=== PATIENT | female | born 1955 | race Caucasian/White ===

== ENCOUNTER 2018-07-13 19:00 | Observation (INO) | payer OTHER ==
[~2018-07-13 19:00] MED LIST: Iopamidol 370 76% 100 ML VIAL ONE
[2018-07-13 19:46] LABS: #Basophils 0.1 thou/uL (0.0-0.2); #Eosinphils 0.3 thou/uL (0.0-0.7); #Lymphocytes 3.1 thou/uL (1.20-3.40); #Monocytes 0.6 thou/uL (0.11-0.59); %Basophils 1.9 % (0.0-1.0); %Eosinophils 4.3 % (0.0-10.0); %Lymphocytes 43.3 % (21.0-51.0); %Monocytes 7.9 % (0.0-10.0); %Neutrophils 42.7 % (42.0-75.0); Hemoglobin 11.6 g/dL (12.0-16.0); Mean Corpuscular HGB CONC 34.1 g/dL (32.0-36.0); Mean Corpuscular Hemoglobin 30.7 pg (27.0-31.0); Mean Platelet Volume 7.7 fL (7.4-10.4); Platelet Count 237 thou/uL (130-400); RBC Distribution Width 11.8 % (11.5-14.5); Red Blood Cell (RBC) Count 3.79 mill/uL (4.20-5.40); White Blood Cell (WBC) Count 7.1 thou/uL (4.8-10.8)
[2018-07-13 19:55] LABS: INR-International Normal Ratio 1.1; PTT 32.3 SEC (22.9-36.1)
--- NOTE | 2018-07-13 19:56 | CT ---
NONCONTRAST CT HEAD: 07/13/18 HISTORY: Stroke. COMPARISON: None available. FINDINGS: There is diminished attenuation seen throughout the periventricular white matter which is nonspecific but likely attributable to moderate to severe chronic small vessel ischemic changes. Low density foc i are seen in each thalamus in the anterior aspect of each basal ganglia related to lacunar infarctio ns of indeterminate age. No acute cortical infarction is seen. There is no evidence of a hemorrhage, mass effect of midline shift. Mild cerebral volume loss is present. The visualized paranasal sinuses and mastoid air cells are clear. The calvarial structures have a nor mal appearance. IMPRESSION: 1. Lacunar infarctions in each thalamus and each basal ganglia of indeterminate age. 2. Moderate to severe chronic small vessel ischemic changes. 3. No acute cortical infarction is seen. Above findings discussed with Dr. Fernández in the Emergency Department on 07/13/18 at 1914 hours. POS: [facility]
[2018-07-13 20:03] LABS: ALT (SGPT) 23 U/L (8-55); AST (SGOT) 25 U/L (5-34); Alkaline Phosphatase 60 U/L (40-150); Anion Gap 14 mmol/L (10-20); BUN (Urea Nitrogen) 30 mg/dL (9.8-20.1); Bilirubin, Total 0.4 mg/dL (0.2-1.2); CK (CPK) 123 U/L (29-168); Calc. Creatinine Clearance 0 mL/min (70-130); Calcium 9.3 mg/dL (7.8-10.44); Carbon Dioxide 19 mmol/L (22-29); Chloride 102 mmol/L (98-107); Estimated GFR-MDRD 24; Globulin 2.9 g/dL (2.4-3.5); Glucose 122 mg/dL (70-105); Magnesium 1.7 mg/dL (1.6-2.6); Potassium 3.9 mmol/L (3.5-5.1); Protein, Total 6.9 g/dL (6.0-8.3); Sodium 131 mmol/L (136-145)
[2018-07-13 20:04] LABS: Acetaminophen Less than 6.0 mcg/mL (10.0-30.0); Alcohol Less than 10 mg/dL (Less than 10); Salicylate Less than 8.0 mg/dL (15.0-30.0)
[2018-07-13 20:08] LABS: Troponin I Less than 0.010 ng/mL (< 0.028)
[2018-07-13 20:09] LABS: Bilirubin Negative (Negative); Blood, Urine Small (Negative); Clarity CLOUDY (Clear); Glucose, Urine (Dipstick) Negative (Negative); Leukocyte Large (Negative); Nitrite Positive (Negative); Protein, Urine (Dipstick) Negative (Neg-Trace); Specific Gravity, Urine 1.007 (1.002-1.036); Urobilinogen 0.2 mg/dL (0.2-1.0)
[2018-07-13 20:10] LABS: RBC/HPF 0-3 HPF (0-3)
[2018-07-13 20:13] LABS: Pathc Cast-AUWi Flag 3.19 (0-2.49)
[2018-07-13 20:17] LABS: Medtox Reader # READER 4
[2018-07-13 20:18] LABS: Amphetamine Not Detected (NotDetected); Barbiturates Screen Not Detected (NotDetected); Benzodiazepine Screen Detected (NotDetected); Cocaine Metabolite Screen Not Detected (NotDetected); Medtox Control Line Valid? VALID (VALID); Methadone Not Detected (NotDetected); Methamphetamine Not Detected (NotDetected); Opiate Screen Not Detected (NotDetected); Oxycodone Screen Not Detected (NotDetected); Phencyclidine (PCP) Not Detected (NotDetected); THC/Cannabinoid Screen Not Detected (NotDetected); Tricyclic Screen Detected (NotDetected)
[2018-07-13 20:19] LABS: Hyaline Casts/LPF 0-3 HYALINE CAST LPF (0-3 Hyaline); Other Casts/LPF None Seen LPF (0-3 Hyaline)
[2018-07-13 20:20] LABS: Bacteria/HPF 3+ HPF (None Seen)
[2018-07-13] MEDS ORDERED: cefTRIAXone\\ROCEPHIN 1 GM VIAL ONE (21:25)
[2018-07-13] MEDS ORDERED: Sodium Chloride 0.9% 100 ML ONE (21:25)
[2018-07-13] MEDS ORDERED: Ondansetron PF 4 MG/2 ML Vial IVP PRN (21:31)
[2018-07-13] MEDS ORDERED: Acetaminophen 325 MG TAB PO PRN (21:31)
--- NOTE | 2018-07-13 21:46 | CT ---
CT ANGIOGRAM HEAD WITH IV CONTRAST AND 3D RECONSTRUCTIONS CT ANGIOGRAM NECK WITH IV CONTRAST AND 3D RECONSTRUCTIONS 07/13/18 HISTORY: Stroke. COMPARISON: None available. FINDINGS: There is mild atherosclerotic calcifications and plaque in the aortic arch. There is a normal arrange ment of the great vessels at the aortic arch. Left subclavian artery is tortuous and portions of the left subclavian artery are not well visualized due to dense contrast in the left subclavian vein, but the left subclavian artery is otherwise patent. The innominate and right subclavian artery are paten t. The bilateral common carotid arteries are patent. There is mild atherosclerotic calcifications presen t within the origins and involving the proximal internal carotid arteries bilaterally, but there is l ess than 50% maximal stenosis involving each internal carotid artery based on NASCET criteria. The left vertebral artery is generally small in caliber and appears to arise from the aortic arch. Th e right vertebral artery is dominant and is patent. There is a dense calcification present in the dis dhaval left vertebral artery at the skull base. The basilar artery as well as bilateral posterior cerebr al arteries are patent. There is a type origin of the left posterior cerebral artery which is a normal variant. The posterior communicating artery on the right is patent. The bilateral middle cerebral and anterior cerebral arteries are patent. No focal stenosis or branch occlusion is seen involving the [place] or vertebrobasilar system. No aneurysm is seen withi n the limitations of the technique of this exam. Lung apices demonstrate what appears to be small layering pleural effusion versus pleural thickening on the right with evidence of atelectasis in the visualized upper lung zones bilaterally. Degenerative changes are seen in the cervical spine. IMPRESSION: 1. Less than 50% maximal stenosis involving the bilateral internal carotid arteries with mild na rrowing involving the proximal aspect of each internal carotid artery due to vascular calcifications. 2. The left vertebral artery arises from the abdominal aorta and is very small in caliber. The r ight vertebral artery is dominant and is patent. 3. No focal stenosis or branch occlusion involving the [place] or vertebrobasilar syste m. 4. Above findings discussed with Dr. Fernández in the Emergency Department on 07/13/18 at 1956 hour s. POS: [facility]
--- NOTE | 2018-07-13 21:52 | RAD ---
PORTABLE AP CHEST X-RAY 07/13/18 HISTORY: Altered mental status. COMPARISON: None available. FINDINGS: The cardiac silhouette and bronchovascular markings are accentuated by portable technique and shallow depth of inspiration. Bibasilar atelectasis is present. Vascular calcifications are seen in the thor acic aorta. Osseous structures appear intact. IMPRESSION: No definite acute cardiopulmonary process present, but there is accentuation of the bronchovascular m arkings and the cardiac silhouette. Followup chest x-ray may be helpful for further evaluation. POS: [facility]
[2018-07-14] MEDS: Sodium Chloride 0.9% 1,000 ML IV SCH ×2 (00:12→13:08)
[2018-07-14 01:38] VITALS: BMI 32.2
[2018-07-14 06:27] LABS: #Basophils 0.1 thou/uL (0.0-0.2); #Eosinphils 0.2 thou/uL (0.0-0.7); #Lymphocytes 2.2 thou/uL (1.20-3.40); #Monocytes 0.7 thou/uL (0.11-0.59); #Neutrophils 3.7 thou/uL (1.40-6.50); %Basophils 1.1 % (0.0-1.0); %Eosinophils 3.6 % (0.0-10.0); %Lymphocytes 31.6 % (21.0-51.0); %Monocytes 10.6 % (0.0-10.0); Hemoglobin 11.8 g/dL (12.0-16.0); Mean Corpuscular HGB CONC 31.7 g/dL (32.0-36.0); Mean Corpuscular Hemoglobin 28.5 pg (27.0-31.0); Mean Corpuscular Volume 90.1 fL (78.0-98.0); Mean Platelet Volume 7.9 fL (7.4-10.4); Platelet Count 221 thou/uL (130-400); RBC Distribution Width 11.9 % (11.5-14.5); Red Blood Cell (RBC) Count 4.13 mill/uL (4.20-5.40); White Blood Cell (WBC) Count 6.9 thou/uL (4.8-10.8)
[2018-07-14 06:45] LABS: Anion Gap 13 mmol/L (10-20); BUN (Urea Nitrogen) 26 mg/dL (9.8-20.1); Calc. Creatinine Clearance 54 mL/min (70-130); Calcium 9.2 mg/dL (7.8-10.44); Carbon Dioxide 19 mmol/L (22-29); Chloride 110 mmol/L (98-107); Estimated GFR-MDRD 32; Glucose 101 mg/dL (70-105); Potassium 3.6 mmol/L (3.5-5.1); Sodium 138 mmol/L (136-145)
[2018-07-14] MEDS: Enoxaparin Sodium 40 MG/0.4 ML SYRINGE SC SCH (09:56)
[2018-07-14] MEDS: Gabapentin 300 MG CAP PO SCH ×2 (16:16→20:27)
[2018-07-14] MEDS ORDERED: Dextrose 5% in Water 1,000 ML IV PRN (17:20)
[2018-07-14] MEDS ORDERED: Dextrose 50% Abboject 50 ML SYRINGE SLOW IVP PRN (17:20)
[2018-07-14] MEDS: HumaLOG 300 UNITS/3 ML VIAL SC PRN (17:51)
[2018-07-14] MEDS: Pregabalin 75 MG CAP PO SCH (20:27)
[2018-07-14] MEDS: cloNIDine 0.3 MG TAB PO SCH (20:27)
[2018-07-14] MEDS ORDERED: Atorvastatin Calcium 10 MG TAB PO SCH (21:00)
[2018-07-15 05:59] LABS: #Eosinphils 0.2 thou/uL (0.0-0.7); #Monocytes 0.6 thou/uL (0.11-0.59); #Neutrophils 2.5 thou/uL (1.40-6.50); %Basophils 0.9 % (0.0-1.0); %Lymphocytes 37.4 % (21.0-51.0); %Monocytes 10.5 % (0.0-10.0); %Neutrophils 47.2 % (42.0-75.0); Hemoglobin 11.5 g/dL (12.0-16.0); Mean Corpuscular Hemoglobin 29.8 pg (27.0-31.0); Mean Corpuscular Volume 90.2 fL (78.0-98.0); Mean Platelet Volume 8.2 fL (7.4-10.4); Platelet Count 245 thou/uL (130-400); RBC Distribution Width 12.1 % (11.5-14.5); Red Blood Cell (RBC) Count 3.85 mill/uL (4.20-5.40); White Blood Cell (WBC) Count 5.4 thou/uL (4.8-10.8)
[2018-07-15] MEDS ORDERED: cefTRIAXone\\ROCEPHIN 1 GM in Sodium Chloride 0.9% 100 ML IVPB SCH (06:00)
[2018-07-15 06:18] LABS: ALT (SGPT) 20 U/L (8-55); AST (SGOT) 18 U/L (5-34); Albumin 3.6 g/dL (3.5-5.0); Alkaline Phosphatase 55 U/L (40-150); Anion Gap 11 mmol/L (10-20); BUN (Urea Nitrogen) 19 mg/dL (9.8-20.1); Bilirubin, Total 0.4 mg/dL (0.2-1.2); Calc. Creatinine Clearance 64 mL/min (70-130); Calcium 9.6 mg/dL (7.8-10.44); Carbon Dioxide 20 mmol/L (22-29); Chloride 113 mmol/L (98-107); Estimated GFR-MDRD 40; Glucose 169 mg/dL (70-105); Potassium 3.7 mmol/L (3.5-5.1); Protein, Total 6.6 g/dL (6.0-8.3); Sodium 140 mmol/L (136-145)
[2018-07-15] MEDS: Sodium Chloride 0.9% 1,000 ML IV SCH (06:28)
[2018-07-15] MEDS ORDERED: Losartan 25 MG TAB PO SCH (09:00)
[2018-07-15] MEDS ORDERED: Furosemide 40 MG TAB PO SCH (09:00)
[2018-07-15] MEDS ORDERED: Potassium Chloride 20 MEQ TAB PO SCH (09:00)
[2018-07-15] MEDS ORDERED: Allopurinol 100 MG TAB PO SCH (09:00)
[2018-07-15] MEDS ORDERED: glyBURIDE 5 MG TAB PO SCH (09:00)
[2018-07-15] MEDS ORDERED: Carvedilol 6.25 MG TAB PO SCH (09:00)
[2018-07-15] MEDS ORDERED: Aspirin 325 mg Enteric Coated Tablet PO SCH (09:00)
[2018-07-15] MEDS: cloNIDine 0.3 MG TAB PO SCH (09:18)
[2018-07-15] MEDS: Pregabalin 75 MG CAP PO SCH (09:19)
[2018-07-15] MEDS: Gabapentin 300 MG CAP PO SCH (09:19)
[2018-07-15] MEDS: Enoxaparin Sodium 40 MG/0.4 ML SYRINGE SC SCH (09:25)
--- NOTE | 2018-07-15 10:08 | RAD ---
PORTABLE CHEST: DATE: 07/15/2018. PROVIDED CLINICAL HISTORY: Altered mental status. FINDINGS: Cardiac and mediastinal silhouette is unchanged in appearance. Vascular calcification is again seen. No definite focal consolidation, pleural fluid, or pneumothorax apparent. IMPRESSION: No evidence for an acute cardiopulmonary process. POS: [facility]
[2018-07-15 11:21] VITALS: BP 139/82; TEMP 97.4
--- NOTE | 2018-07-15 12:03 | PDOC.PN ---
- Subjective Encounter Start Date: 07/15/18 Encounter Start Time: 10:00 Ms. Mo was seen both yesterday and again this morning in follow-up of lethargy. Please note that Mr. Mo is her current name. She also has old records under the name Janiya Whitlock as well. She was last in the hospital in June under the name of Janiya Mo. It is reported that she was extremely drowsy this morning. When I came to see her she was more awake and alert. She was answering questions appropriately. She is oriented to person, place and time, She knew the President, and the reason she was brought to the hospital. - Objective Resuscitation Status - Order Detail: 07/13/18 21:31 Resuscitation Status Routine Resuscitation Status: FULL: Full Resuscitation MAR Reviewed: Yes Vital Signs & Weight: Vital Signs (12 hours) Temp Pulse Pulse Pulse Resp BP BP 07/15/18 11:16 97.4 F L 69 16 139/82 07/15/18 09:40 68 71 122/74 07/15/18 09:25 120/85 07/15/18 07:25 99.3 F 76 16 103/70 07/15/18 04:00 98.2 F 71 21 H BP BP Pulse Ox 07/15/18 11:16 97 07/15/18 09:40 114/70 07/15/18 09:25 07/15/18 07:25 92 L 07/15/18 04:00 126/81 93 L Weight Weight 197 lb 8 oz I&O: 07/14/18 07/15/18 07/16/18 06:59 06:59 06:59 Intake Total 525 1770 1165 Output Total 1100 Balance 525 1770 65 Result Diagrams: 07/15/18 04:22 07/15/18 04:22 Additional Labs: Accuchecks 07/15/18 07/15/18 07/14/18 10:46 05:11 20:08 POC Glucose 289 H 172 H 125 H 07/14/18 16:45 POC Glucose 207 H Phys Exam - Physical Examination HEENT: PERRLA Respiratory: no wheezing, no rales, no rhonchi, wheezing present, clear to auscultation bilateral + occasional wheeze Cardiovascular: RRR, no significant murmur, no rub Gastrointestinal: soft, non-tender, no distention, positive bowel sounds Musculoskeletal: pulses present Neurological: moves all 4 limbs + mild right upper extremity weakness Psychiatric: normal affect, A&O x 3 Dx/Plan (1) UTI (urinary tract infection) Status: Acute (2) Metabolic encephalopathy Code(s): G93.41 - METABOLIC ENCEPHALOPATHY Status: Acute (3) Polypharmacy Code(s): Z79.899 - OTHER PRISON (CURRENT) DRUG THERAPY Status: Acute (4) CVA, old, hemiparesis Code(s): I69.359 - HEMIPLGA FOLLOWING CEREBRAL INFARCTION AFFECTING UNSP SIDE Status: Acute (5) Diabetes mellitus type 2 in obese Code(s): E11.69 - TYPE 2 DIABETES MELLITUS WITH OTHER SPECIFIED COMPLICATION; E66.9 - OBESITY, UNSPECIFIED Status: Acute (6) Hypertension Code(s): I10 - ESSENTIAL (PRIMARY) HYPERTENSION Status: Acute - Plan * Altered mental status and lethargy- I suspect this is due to a metabolic encephalopathy from multiple sources, including a UTI, Polypharmacy, and she may have some underlying sleep apnea. This was discussed with the patient * HTN- blood pressure is controlled * DM- blood glucose is stable * Will get her up with PT today * I have recommended outpatient sleep study * She had an abnormal CT abdomen on her previous admission- ( area about the pancreatic head)- This will need to be follow-up as an outpatient.
[2018-07-15] MEDS: HumaLOG 300 UNITS/3 ML VIAL SC PRN (12:04)
--- NOTE | 2018-07-15 21:25 | HP ---
CHIEF COMPLAINT: Altered mental status. HISTORY OF PRESENT ILLNESS: The patient presented to the emergency room on 07/13/2018 initially for a stroke alert. Family had called EMS for patient, who had increasing weakness. The patient evidently had TIA 2 days prior, admitted to the hospital, discharged yesterday, and slept most of the night. When EMS arrived, the patient was found to have slurred speech, right-sided weakness, and a slight drift. At that time, family could not give EMS any definite last normal baseline time. The patient was initially hypotensive at 97/60, then it increased to 110/80 while en route. Glucose was 189. Most of this information is taken from records. It is important to note that the patient has registered with the last name Celso. She was previously seen in June with last name Chely. The patient also has aliases of Kamlesh and one other name. Nurses note that she had medications with several different names listed. While in the ER, family called and noted that she had had previous CVAs and had some chronic right-sided weakness. The patient was worked up for a stroke while in the emergency room. The patient had brain CT while in the emergency room, which showed lacunar infarctions in each thalamus and each basal ganglia of indeterminate age, [id number] chronic small vessel ischemic changes, no acute infarction is seen. She also had a CTA of the neck and brain, which showed less than 50% max stenosis involving the bilateral internal carotid arteries, mild narrowing of the proximal aspect of each internal carotid artery due to vascular calcifications. Left vertebral artery arises from the abdominal aorta, and it is very small in caliber. No focal stenosis of the branch or branch occlusion involving the [place]. The patient also had a chest x-ray, which was negative for any acute process. The patient had a nitrite positive UTI in the emergency room, started on Rocephin. Lactic acid was 1.1. Creatinine initially was 2.14, and her urine drug screen was positive for tricyclics and benzodiazepine. The patient does not have a prescription known to us for benzodiazepines. The patient based on history and symptoms was admitted to observation. Of note, the patient was admitted and discharged in June of this year, discharge date 06/12/2018. She had at that time acute metabolic encephalopathy, acute renal injury with mild rhabdomyolysis, urinary tract infection, hypertension, and type 2 diabetes. urine was again positive for tricyclics and benzodiazepines. She was instructed at that time to follow up with Dr. Wesley for followup appointment to repeat her labs, and restart medications. The patient is unable to say whether that happened. PAST MEDICAL HISTORY: 1. Hypertension. 2. Diabetes mellitus, type 2. 3. Question of chronic obstructive pulmonary disease. 4. Hyperlipidemia. 5. Question of peripheral neuropathy. 6. History of prior CVA accidents with residual right-sided weakness. 7. Tobacco abuse. PAST SURGICAL HISTORY: Reviewed and negative. CURRENT MEDICATIONS: List is incomplete, will be needed to be confirm with family as the patient was in possession several bottles of medication, which had different names. List from last admission on discharge included the following, 1. Aspirin 325 mg 1 p.o. daily. 2. Coreg 12.5 mg p.o. daily. 3. Clonidine 0.3 mg p.o. b.i.d. 4. Lasix 40 mg p.o. daily. 5. Glyburide 5 mg p.o. daily. 6. Protonix 40 mg p.o. daily. 7. K-Dur 20 meq p.o. daily. 8. Pravastatin 40 mg p.o. daily. 9. Seroquel 200 mg p.o. b.i.d. 10. Vesicare 5 mg p.o. daily. 11. There is a history of tramadol 50 mg one tab p.o. q.8 hours as needed for pain. ALLERGIES: THE PATIENT HAS NO DRUG ALLERGIES. FAMILY HISTORY: Positive for hypertension and diabetes. SOCIAL HISTORY: and resides in [facility]. Smokes up to half a pack of cigarettes daily. Denies any alcohol or drug use. REVIEW OF SYSTEMS: The patient was examined. Review of systems negative except what is listed in the HPI. PHYSICAL EXAMINATION: VITAL SIGNS: Temperature is 98.8, pulse is 68, respirations are 18, blood pressure 135/81, and pulse ox 95% on room air. CONSTITUTIONAL: The patient appears pain free, non-toxic. She is alert to name, place, and time, reports that her last name is Lopper. HEENT: Head is atraumatic and normocephalic. Eyes, pupils are equally round and reactive to light. Extraocular muscles are intact. ENT, mouth exam is normal. Mucous membranes are moist. NECK: Trachea is midline. No tenderness on palpation. RESPIRATORY/CHEST: Breath sounds are clear. No respiratory distress. CARDIOVASCULAR: Regular rate and rhythm. No abnormal heart sounds. ABDOMEN: Female. Abdomen is nontender. Bowel sounds are heard. No peritoneal signs. BACK: Normal inspection. Normal range of motion. No tenderness. EXTREMITIES: Upper extremities inspection is normal range of motion. Has normal sensation and intact. Radial pulse is normal bilaterally. There is weakness noted to right arm. Lower extremity inspection is normal, range of motion is normal. There is a weakness 3/5 to the right side. NEURO: The patient is oriented to person, place, and time. No focal or sensory deficits other than what is mentioned above. She does respond to questions appropriately. SKIN: Warm, dry, normal in color. PSYCH: Flat affect. DIAGNOSTIC STUDIES: EKG shows sinus bradycardia, pulse of 58, no ectopics. segments are normal. LABORATORY DATA: White blood cell count 7.1, hemoglobin 11.6, hematocrit 34.1, and platelet count 237. INR 1.1, PT 14, APTT 32.3. Sodium 131, chloride 102, carbon-dioxide 19, gap is 14, BUN is 30, creatinine is 2.14, glucose 122, and calcium 9.3. Liver enzymes are unremarkable. CK is 123. Troponin I was undetectable. BNP was 23. Urine positive for blood, nitrites, and leukocyte esterase, white blood cells greater than 50,000, 7 to 10 squamous cells, and 3+ bacteria. UA tox positive for benzodiazepines and tricyclics. ASSESSMENT AND PLAN: 1. Altered mental status. We will gently hydrate and continue Rocephin for the nitrite positive UA. Possible encephalopathy, mental status changes due to benzodiazepines. 2. Hypertension. We will continue home medications. 3. Peripheral neuropathy. We will continue the gabapentin and Lyrica. 4. History of cerebrovascular accident. We will continue aspirin and pravastatin. 5. On CT scan from last admission, the patient had some abnormalities with the pancreas that will need to be followed up as an outpatient. 6. Hospital course will be depending on clinical findings. Job ID: [id number]
--- NOTE | 2018-07-15 22:59 | HP ---
PRIMARY CARE PHYSICIAN: The patient is a [place]. The patient was fired by Dr. Wesley due to some addiction problems. TIME OF EVALUATION: 8 p.m. CODE STATUS: Full code. CHIEF COMPLAINT: The patient was having slurred speech. HISTORY OF PRESENT ILLNESS: This is a 59-year-old female patient with a past medical history of recent admission to the hospital due to TIA and had been discharged yesterday. EMS was called today because the patient was having slurred speech and right-sided weakness with slight drift. Family could not establish a definite timeframe for the symptoms. The patient was reportedly normal when she had been seen early in the morning. There was also some concern that the patient's has been saying that the patient was doing well until they called EMS. No clear triggers, no alleviating factors. The patient was found to be confused, sleepy. The patient was found to be positive for benzos that she had not been prescribed as Dr. Wesley reported to the ER. Reportedly, the patient had been abusing medications that are not hers. As outpatient, has been changing her name to obtain new prescriptions in different occasions before. We will monitor the patient. It seems that she had some higher doses of benzos that had caused her to be encephalopathic. REVIEW OF SYSTEMS: Unable to obtain. The patient is noncooperative. She is arousal, but does not give a complete history. PAST MEDICAL HISTORY: Unable to obtain. PAST SURGICAL HISTORY: Unable to obtain. PSYCH HISTORY: Unable to obtain. SOCIAL HISTORY: Unable to obtain. ALLERGIES: NO KNOWN DRUG ALLERGIES REPORTED. MEDICATIONS: On records; 1. Gabapentin. 2. Seroquel. 3. Protonix. 4. Glyburide. 5. Lyrica. 6. Pravastatin. 7. Clonidine. 8. Tramadol. 9. Coreg. 10. Lasix. 11. Allopurinol. 12. Losartan. 13. K-Dur. 14. Aspirin. 15. ProAir. PHYSICAL EXAMINATION: VITAL SIGNS: On presentation, blood pressure 121/79 with heart rate 59, respiratory rate was 22. Pain, unable to rate. Oxygen saturation 94 on room air. GENERAL: The patient is lethargic, arousable, can answer a few simple questions, unable to start a simple conversation, disoriented. HEENT: Eyes; normal conjunctivae. Moist oral mucosa. Anicteric. No JVD. RESPIRATORY: Bilateral air entry. No rales. No wheezing. Symmetric expansion. CARDIOVASCULAR: Normal rate, regular rhythm. No murmurs, no gallops, no edema. ABDOMEN: Soft. Normal bowel sounds. MUSCULOSKELETAL: Baseline range of motion and strength. No tenderness. SKIN: Warm and intact. No pallor, no rash, no redness. Peripheral pulses are present. Capillary refill seems to be intact. NEURO: The patient is lethargic, unable to fully explore, symptoms seem to be more related with sedation due to benzos, more than a stroke-like symptoms. She is moving both extremities when alert. PSYCH: Unable to explore. DIAGNOSTIC STUDIES: EKG was reviewed. The patient has sinus bradycardia at a rate of 58, RI interval 162, QRS 82, QT corrected 410, T-wave abnormality, consider lateral ischemia that is mostly present in V4 through V6, no ST changes. Brain CT was done. The patient had lacunar infarction in each thalamus and each vasoganglia of indeterminate age, [id number] chronic small vessel ischemic changes, no acute cortical infarction. CT [place] angiogram with contrast was reviewed. The patient has less than 50% maximal stenosis involving bilateral internal carotid arteries with mild narrowing involving the proximal aspect of each internal carotid artery due to vascular calcification. The left vertebral artery arises from the abdominal aorta and is very small in caliber. The right vertebral artery is dominant and is present. Normal stenosis over branch occlusion involving the [place] of vertebrobasilar system. Chest x-ray was reviewed. There is an accentuation of the bronchovascular marking and the cardiac silhouette. Followup chest x-ray may be helpful for further evaluation, but there is no definite acute cardiopulmonary process present. The labs were reviewed. The patient has a white count of 7.1, hemoglobin 11.6, MCV 90, and platelet count 237. Coagulation; PT 14, INR 1.1, and PTT 32.3. Chemistries; sodium 131, potassium 3.9, chloride 102, carbon dioxide was 19, anion gap was 14, BUN 30, creatinine 2.14, GFR was 24, and glucose 122. Outside glucose 168. Lactic acid 1.1. Magnesium 1.7. The LFTs were normal. Beta natriuretic peptide was normal. The urine was reviewed and was positive with white count of greater than 50. Tox screen was reviewed and was positive for tricyclics and benzodiazepines, the rest was negative. ASSESSMENT AND PLAN: The patient was placed in the hospital with the following medical problems: 1. Acute encephalopathy, likely secondary to benzodiazepines and tricyclics overdose, unclear etiology, unclear when that happened. The patient is lethargic, but arousable, she can answer simple questions, we will monitor her on tele, we will adjust treatment as needed. 2. It seems that the patient has problems with addiction to other medications, have been fired by primary care physician due to patient lying and giving false names to obtain medications, this will need to be addressed once the patient is not encephalopathic. 3. Urinary tract infection: The patient has been started on antibiotics. We will follow cultures. We will adjust treatment as needed. 4. Hyperglycemia: Glucose 122. We will monitor, we will adjust treatment as needed. 5. Possible acute kidney injury in presence of chronic kidney disease. No previous creatinines on record. We will hydrate, we will monitor, we will adjust treatment as needed. 6. Hyponatremia with sodium 131, this is mild, we will monitor, we will adjust treatment as needed. 7. Deep venous thrombosis prophylaxis. Job ID: [id number]
--- NOTE | 2018-07-16 11:51 | DIS ---
DATE OF ADMISSION: 07/13/2018 DATE OF DISCHARGE: 07/15/2018 PRIMARY CARE PHYSICIAN: None. CONSULTANTS: None. PROCEDURES: The patient had a brain CT without contrast which showed; 1. Lacunar infarctions in each thalamus and each basal ganglia of indeterminate age. 2. [id number] chronic small vessel ischemic changes. 3. No acute cortical infarction is seen. The patient also had a CTA of the neck and head with contrast, which showed less than 50% maximal stenosis involving the bilateral internal carotid arteries. No focal stenosis or branch occlusion involving the [place]. Complete findings in H and P. The patient had 2 chest x-rays, both with no acute process. HOSPITAL COURSE: The patient presented to emergency room on 07/13/2018, via EMS for altered mental status. Family had called the EMS due to patient acting weak. Most of the history in EMR was obtained by EMS and then family. Daughter did call up to the ER and stated that the patient had called her at 7 o'clock that morning, had normal speech, and then called her again at noon stating that she had fallen. Her aunt called the patient's daughter to say that the patient was not looking well. She has had 2 CVAs in the past and since has residual right-sided weakness. The patient's urinalysis in the ER did show positive for benzodiazepines which she does not have a prescription for that we are aware of and tricyclics; this was the case on her last admission. The patient was found to have a nitrite-positive UA and has been on Rocephin IV piggyback, also acute on chronic renal failure injury, which has improved during hospitalization. The patient's blood pressure has been 120s, sometimes in the 100s. We held the clonidine this morning due to lower blood pressure. We also held the Lyrica and gabapentin due to altered mental status to see if this was contributory. The patient's vital signs remained stable. The patient's lab work improved. The case was discussed with Dr. Zamudio, who agreed to discharge plan. The patient will be sent home with some cefdinir to treat the urinary tract infection. She also was found to have an abnormality on the CT scan on her prior admission, which will need followup with her primary care doctor, this was added to her discharge note. Ms. Mo has multiple aliases, here her name is spelled "Vradsher" in this visit, previous admission, she was "Chely." She also goes by the name Kamlesh and Tere. When Dr. Wesley, her previous PCP was contacted in the ER, he was told that he no longer sees the patient due to some abnormalities with prescription drugs, family members. The patient is not sure who her primary care doctor is. She was encouraged to establish care and to follow up with her multiple comorbidities. She was felt to be stable and will be discharged to home. She will need to discuss with her primary care physician whether it is appropriate to restart her on the gabapentin, Lyrica, and her clonidine. DISCHARGE DIAGNOSES: 1. Altered mental status, etiology is multifactorial, potential benzodiazepine use without a known prescription, urinary tract infection, improved. 2. Urinary tract infection. 3. Bipolar disorder. 4. Diabetes type 2. 5. History of CVA. 6. History of right-sided deficits. 7. Gastroesophageal reflux disease. 8. History of hypokalemia. REVIEW OF SYSTEMS: The patient was examined this morning, just eaten breakfast, was oriented to person, place, and time. She did fall asleep intermittently, but was easily arousable and carry on a conversation. Denies any complaints today. CONSTITUTIONAL: Denied any fever, chills. Reports feeling generally unwell. Reports residual right-sided weakness. EYES: No vision changes. Denies any eye pain. ENT: Denies sore throat, rhinorrhea, or dysphagia. CARDIOVASCULAR: Denies any cheat pain or palpitations. RESPIRATORY: Denies any cough or shortness of breath. GI: Denies any abdominal pain, did eat her breakfast this morning. Denies nausea, vomiting, or diarrhea. : Denies any dysuria or hematuria. MUSCULOSKELETAL: Denies some mild neuropathic pain in the right side arm and leg. Denies any arthralgias. Denies any injuries. SKIN: Denies any changes, NEUROLOGIC: Denies any dizziness or headache. The patient is a little somnolent, but will arouse easily and is alert at that point and oriented to person, place, and time. HEME/LYMPHATIC: Denies any new bruising or clotting. PSYCHIATRIC: Denies any anxiety. Does have a history of bipolar. PHYSICAL EXAMINATION: VITAL SIGNS: Blood pressure is 103/70, temperature is 99.3, pulse is 76, and respirations are 16. CONSTITUTIONAL: The patient is in no distress. She is oriented to person, place, and time. HEAD: Atraumatic and normocephalic. EYES: Pupils are round and reactive to light. Conjunctivae are normal. ENT: Mucous membranes are moist. NECK: Normal range of motion. Trachea is midline. RESPIRATORY: No respiratory distress. Breath sounds are clear bilaterally. CARDIOVASCULAR: Normal rate and rhythm, S1 and S2. ABDOMEN: Nontender. Bowel sounds are heard. BACK: Full range of motion. No CVA tenderness. EXTREMITIES: Normal inspection. Normal range of motion. Strength; upper extremities, 4/5 on the right side, normal on the left. Sensation is decreased slightly on the right arm. Pulses are equal bilaterally. Lower extremities; normal inspection. Normal range of motion. Strength is 4/5 on the right leg, left is 5/5. Pulses are equal bilaterally. Sensation is slightly diminished on the right leg. NEUROLOGIC: The patient is alert and oriented. She is, when I went to see her this morning, somewhat somnolent, but easily aroused and then is aware of person, place, and time. Speech is normal. SKIN: Dry and normal in color. MEDICATIONS: The patient was restarted on her home medications; 1. Allopurinol 200 mg p.o. daily. 2. Aspirin 325 mg p.o. daily. 3. Coreg 12.5 mg daily. 4. Lasix 40 mg p.o. daily. 5. Glyburide 5 mg p.o. daily. 6. Losartan 25 mg p.o. daily. 7. Protonix 40 mg p.o. daily. 8. K-Dur 20 mEq p.o. daily. 9. Pravastatin 40 mg p.o. at bedtime. 10. Seroquel 200 mg p.o. b.i.d. 11. Tramadol 50 mg p.o. q.8 hours as needed for pain. We discontinued on this visit temporarily until she follows up with primary care. 12. Catapres 0.3 mg p.o. t.i.d. 13. Gabapentin. 14. Lyrica. 15. We did add cefdinir 300 mg capsule p.o. b.i.d. x10 days. ALLERGIES: SHE HAS NO KNOWN ALLERGIES. CONDITION: The patient's condition is stable. DISPOSITION: The patient will be discharged home. FOLLOWUP: 1. She is to follow up with a primary care physician within the next week. 2. She is to follow up on the abnormal findings of her CT scan on her last admission. Job ID: [id number]
--- NOTE | 2018-07-18 15:53 | EKG ---
Test Reason : Blood Pressure : / mmHG Vent. Rate : 058 BPM Atrial Rate : 058 BPM P-R Int : 162 ms QRS Dur : 082 ms QT Int : 418 ms P-R-T Axes : 051 049 -60 degrees QTc Int : 410 ms Sinus bradycardia T wave abnormality, consider lateral ischemia Abnormal ECG Confirmed by SOBEIDA HACKETT ([id number]), science editor LELO PATEL ([id number]) on 07/18/2018 3:52:57 PM Referred By: Confirmed By:SOBEIDA HACKETT
== END 2018-07-15 15:28 | disposition home or self-care (01) ==
LOC: ERS 19:00 → EDBD 20:49 → 2NO 20:49
PROVIDERS: ADMIT Hospitalist; ATTEND Hospitalist
DX: G93.40 Encephalopathy, unspecified (principal); E11.65 Type 2 diabetes mellitus with hyperglycemia; E11.42 Type 2 diabetes mellitus with diabetic polyneuropathy; E87.1 Hypo-osmolality and hyponatremia; N39.0 Urinary tract infection, site not specified; F31.9 Bipolar disorder, unspecified; K21.9 Gastro-esophageal reflux disease without esophagitis; E87.6 Hypokalemia; I69.351 Hemiplegia and hemiparesis following cerebral infarction affecting right dominant side; I10 Essential (primary) hypertension; E78.5 Hyperlipidemia, unspecified; Z79.82 Long term (current) use of aspirin; Z79.899 Other long term (current) drug therapy; Z79.84 Long term (current) use of oral hypoglycemic drugs
CPT/HCPCS: 36415; 36416; 51701; 70450; 70496; 70498; 71045; 80048; 80053; 80306; 80307; 81003; 81015; 82550; 82553; 83605; 83735; 83880; 84484; 85025; 85610; 85730; 87040; 87077; 87086; 87186; 93005; 96361; 96365; 96366; 96372; A4353; G0378; G8978-GP-CK; G8979-GP-CK; G8980-GP-CK; J0696; J1650; J7050

== ENCOUNTER 2018-07-19 10:57 | Emergency (ER) | payer OTHER | END 2018-07-19 12:57 | disposition home or self-care (01) | LOC: ERS 10:57 | DX: N39.0 Urinary tract infection, site not specified (principal); R05 Cough; F17.210 Nicotine dependence, cigarettes, uncomplicated; I10 Essential (primary) hypertension; Z79.899 Other long term (current) drug therapy | CPT/HCPCS: 99283 ==

== ENCOUNTER 2018-08-15 16:14 | Emergency (ER) | payer OTHER ==
--- NOTE | 2018-08-15 17:09 | RAD ---
FOUR VIEWS RIGHT KNEE: Comparison: None. History: Slipped in [employer] grocery store and fell with right knee pain. FINDINGS: Four views of the right knee shows no evidence of acute fracture or dislocation. Small osteophytes ar e seen in the medial femoral tibial compartment. No knee effusion is seen. IMPRESSION: Mild right knee osteoarthritis without acute osseous abnormality. POS: [facility]
== END 2018-08-15 17:59 | disposition home or self-care (01) ==
LOC: ERS 16:14
DX: S80.01XA Contusion of right knee, initial encounter (principal); M25.532 Pain in left wrist; I11.0 Hypertensive heart disease with heart failure; I50.9 Heart failure, unspecified; E11.9 Type 2 diabetes mellitus without complications; E78.5 Hyperlipidemia, unspecified; F41.9 Anxiety disorder, unspecified; F17.210 Nicotine dependence, cigarettes, uncomplicated; W18.11XA Fall from or off toilet without subsequent striking against object, initial encounter

== ENCOUNTER 2018-09-06 12:27 | Inpatient (IN) | payer OTHER ==
[~2018-09-06 12:27] MED LIST changes: +Iopamidol 370 76% 50 ML VIAL FS ONE
--- NOTE | 2018-09-06 13:38 | CT ---
BRAIN CT WITHOUT IV CONTRAST: HISTORY: Stroke alert, generalized weakness following a fall 1 week ago. Slurred speech. Right arm and leg w eakness. COMPARISON: 07/13/2018. FINDINGS: Stable atrophy and chronic white matter ischemic change noted bilaterally. No focal mass or midline shift. No intra- or extraaxial hemorrhage. IMPRESSION: Stable atrophy and chronic white matter ischemic change. No mass or bleed. Findings discussed with Dr. Harvey at 1:15 p.m. CODE CR POS: [facility]
[2018-09-06 14:09] LABS: Hemoglobin 11.6 g/dL (12.0-16.0); Mean Corpuscular HGB CONC 30.2 g/dL (32.0-36.0); Mean Corpuscular Hemoglobin 27.2 pg (27.0-31.0); Mean Corpuscular Volume 90.2 fL (78.0-98.0); Mean Platelet Volume 7.8 fL (7.4-10.4); Platelet Count 236 thou/uL (130-400); RBC Distribution Width 12.5 % (11.5-14.5); Red Blood Cell (RBC) Count 4.24 mill/uL (4.20-5.40); White Blood Cell (WBC) Count 8.5 thou/uL (4.8-10.8)
[2018-09-06 14:16] LABS: ALT (SGPT) 19 U/L (8-55); AST (SGOT) 22 U/L (5-34); Albumin 3.9 g/dL (3.4-4.8); Alkaline Phosphatase 65 U/L (40-150); Anion Gap 13 mmol/L (10-20); BUN (Urea Nitrogen) 16 mg/dL (9.8-20.1); Bilirubin, Total 0.4 mg/dL (0.2-1.2); CK (CPK) 88 U/L (29-168); Calc. Creatinine Clearance 0 mL/min (70-130); Carbon Dioxide 22 mmol/L (23-31); Chloride 108 mmol/L (98-107); Estimated GFR-MDRD 45; Globulin 3.2 g/dL (2.4-3.5); Glucose 81 mg/dL (80-115); Potassium 4.2 mmol/L (3.5-5.1); Protein, Total 7.1 g/dL (6.0-8.3); Sodium 139 mmol/L (136-145)
[2018-09-06] MEDS ORDERED: Aspirin 300 MG Suppository ONE (14:26)
[2018-09-06 14:33] LABS: Eosinophils 1 % (0-10); Lymphocytes 50 % (21-51); MDiff Complete? YES; Monocytes 2 % (0-10); Neutrophil 47 % (42-75); Platelet Morphology Comment Appears Adequate
--- NOTE | 2018-09-06 14:44 | RAD ---
CHEST 1 VIEW: HISTORY: Increased weakness after a fall 1 week ago. COMPARISON: 07/15/2018. FINDINGS: Poor inspiration with some bilateral vascular congestion and possible mild interstitial edema with pr obable small pleural effusions. No confluent lobar pneumonia. IMPRESSION: Decreased inspiratory effort with bilateral vascular congestion and minimal interstitial edema and sm all pleural effusions. At least borderline-size heart. POS: [facility]
[2018-09-06] MEDS ORDERED: Ondansetron ODT 4 MG TAB PO PRN (14:53)
[2018-09-06] MEDS ORDERED: Ondansetron PF 4 MG/2 ML Vial IVP PRN (14:53)
[2018-09-06] MEDS ORDERED: Senokot S 8.6-50 MG TAB PO PRN (14:53)
[2018-09-06] MEDS ORDERED: HumaLOG 300 UNITS/3 ML VIAL SC PRN (14:53)
[2018-09-06] MEDS ORDERED: Dextrose 50% Abboject 50 ML SYRINGE SLOW IVP PRN (14:53)
[2018-09-06] MEDS ORDERED: Sodium Chloride 0.65% Nasal 44 ML BOT EA NARE PRN (14:53)
[2018-09-06] MEDS ORDERED: Bisacodyl 10 MG SUPP PR PRN (14:53)
[2018-09-06] MEDS ORDERED: Cepastat Lozenges 1 LOZ PO PRN (14:53)
[2018-09-06] MEDS ORDERED: Calcium Carbonate 500 MG ChewTAB PO PRN (14:53)
[2018-09-06] MEDS ORDERED: Artificial Tears 18 DROP/0.9 ML EA EYE PRN (14:53)
[2018-09-06] MEDS ORDERED: Loperamide HCl 2 MG CAP PO PRN (14:53)
[2018-09-06] MEDS ORDERED: Dextrose 5% in Water 1,000 ML IV PRN (14:53)
[2018-09-06] MEDS ORDERED: Diabetic Tussin 200 MG/10 ML UDCUP PO PRN (14:53)
[2018-09-06] MEDS ORDERED: Loratadine 10 MG TAB PO PRN (14:53)
[2018-09-06] MEDS ORDERED: Bisacodyl 5 MG TAB PO PRN (14:53)
[2018-09-06] MEDS ORDERED: Eucerin (Mineral Oil/Petrolatum,White) 30 gm Jar TOP PRN (14:53)
--- NOTE | 2018-09-06 15:14 | CT ---
CT ANGIOGRAM HEAD WITH CONTRAST CT ANGIOGRAM NECK WITH CONTRAST: Date: 09/06/18 Time: 1348 hours HISTORY: 63-year-old female with acute stroke symptoms: right upper extremity and right lower extremity weakne ss, with dysarthria. TECHNIQUE: IV injection of Isovue. Arterial bolus chasing technique scan performed from slightly inferior to donna to vertex of head. C oronal and sagittal 3D MIP reconstructions of the neck and head. FINDINGS: Brachiocephalic: No stenosis. Right subclavian: No stenosis. Left subclavian: No stenosis. Right common carotid: No stenosis. Left common carotid: No stenosis. Right vertebral: Dominant. No stenosis. Left vertebral: Diminutive and difficult to visualize proximal portions. No evidence of short segmen t high grade stenosis at mid and distal cervical portions. Intracranially, there is a prominent calci fied plaque which probably causes high grade stenosis. Distal to that, there is patency of the distal intracranial portion of the left vertebral artery. Right internal carotid: Calcified plaque at origin at bulb causing mild stenosis. Rest of the cervic al [place] is not stenotic. Left internal carotid: Calcified plaque at origin at bulb causing mild stenosis. No stenosis in the rest of the LICA. Carotid siphons: Calcified atherosclerotic plaque with no evidence of high grade stenosis. Bilateral middle cerebral arteries: No clot, occlusion, or high grade stenosis of M1 segments. Bilateral anterior cerebral arteries: No high grade stenosis or occlusion of bilateral A1 and A2 seg ments. Posterior circulation: Bilateral P2 segments of posterior cerebral arteries, demonstrate no occlusion. The P1 segment of the left [employer] is diminutive. Normal basilar artery. Proximal portions of bilateral superior cerebellar arteries are visualized. Bilateral posterior communicating arteries are present. No intracranial aneurysm identified. Dr. Barrios gave this stroke protocol alert report by telephone to Dr. Knowles at 1420 hours on 09/06/18. IMPRESSION: 1. Atherosclerotic plaque at origins of bilateral internal carotid arteries causing mild stenosis. 2. Focal atherosclerotic plaque at a point in the intracranial left vertebral artery causing an unkn own degree of stenosis. 2. No other potentially high grade stenosis or occlusion identified in major vessel of [place] (including M1 segments of middle cerebral arteries), or major arteries of the neck. CODE CR. POS: [facility]
--- NOTE | 2018-09-06 15:41 | HP ---
PRIMARY CARE PHYSICIAN: Dr. Pickering. REASON FOR ADMISSION: Acute encephalopathy and CVA symptoms. HISTORY OF PRESENT ILLNESS: A 63-year-old female who was recently admitted in our hospital in July 2018. Based on that, the patient has underlying history of hypertension and diabetes. This patient is currently not in position to provide any history. Her son brought her to emergency room and subsequently never showed up. The patient was brought to ER mid day around 12 and stroke alert was initiated. When nurses were taking her to CT scan at that time, they noticed that the patient was having flaccid weakness on the right side and she was able to hold her left side. She was in and out of her mental status. She appeared very weak and lethargic. Unfortunately, the patient is not able to provide any history, so history is very limited. We do not know when it started, but per report from ER physician, it was started about this morning, but she was also weak for last week. She did not have any other symptoms as per my report with ER physician. The patient was not a candidate for any tPA because the duration of onset of symptoms was not clear. REVIEW OF SYSTEMS: All review of systems tried to review with the patient but unable to review at this point because of current patient's mental status. PAST MEDICAL HISTORY: Hypertension; diabetes, type 2; COPD; dyslipidemia; peripheral neuropathy; history of CVA with residual weakness; and tobacco abuse disorder. PAST SURGICAL HISTORY: Cholecystectomy and . PAST PSYCHIATRIC HISTORY: Anxiety and depression. SOCIAL HISTORY: The patient has history of smoking. She does not have any alcohol or other illicit drug abuse history. ALLERGIES: NO KNOWN DRUG ALLERGIES. FAMILY HISTORY: Positive for hypertension and diabetes. CURRENT HOME MEDICATIONS: Based on our last discharge summary from hospital, the patient is on, 1. Allopurinol 200 mg p.o. daily. 2. Aspirin 325 mg p.o. daily. 3. Coreg 12.5 mg daily. 4. Lasix 40 mg daily. 5. Glyburide 5 mg p.o. daily. 6. Losartan 25 mg p.o. daily. 7. Protonix 40 mg p.o. daily. 8. Potassium chloride 20 mEq p.o. daily. 9. Pravastatin 40 mg p.o. at bedtime. 10. Seroquel 200 mg p.o. b.i.d. 11. Tramadol 50 mg q.8 hourly p.r.n. EMERGENCY ROOM COURSE: The patient is given aspirin rectally. PHYSICAL EXAMINATION: VITAL SIGNS: On arrival, blood pressure 128/88, pulse 79, respiratory rate 16, temperature 98.0, and saturation 93% on room air. Weight 91.3 kg. GENERAL: The patient is currently lethargic and not following any command. HEENT: Head; normocephalic, atraumatic. Eyes; pupils are small, 1 or 2 mm, not reactive to light. ENT; oropharynx within normal limits. Moist mucous membranes. NECK: Supple. No JVD. No thyromegaly. No carotid bruit. LUNGS: Clear to auscultation without any rhonchi or rales. CARDIAC: S1 and S2, regular without any murmur. ABDOMEN: Soft. Obesity present. Bowel sounds present. Nontender. Nondistended. No organomegaly. No mass. No suprapubic tenderness. BACK: Unremarkable. No CVA tenderness. EXTREMITIES: Upper extremities; passive movement of all joints is normal. Lower extremity; no edema. Good distal pulsations. SKIN: No skin rash. HEMATOLOGIC: No lymphadenopathy. NEUROLOGIC: Limited because the patient is not cooperative and not following any command. Her speech is slurred. She has a right-sided flaccid weakness. SIGNIFICANT LABORATORY DATA: EKG showing normal sinus rhythm, nonspecific ST-T changes. CT brain based on my review; no acute intracranial process. CT [place], negative for any acute clot. Chest x-ray showing small bilateral pleural effusion. CBC; WBC 8.5, hemoglobin 11.6, and platelet 236. BMP; sodium 139, potassium 4.2, chloride 108, carbon dioxide 22, BUN 16, creatinine 1.21, glucose 81, calcium 10.0. LFT; AST 22, ALT 19, alkaline phosphatase 65, and albumin 3.9. ASSESSMENT: 1. Acute cerebrovascular accident. 2. Acute encephalopathy. 3. Hypertension. 4. Diabetes, type 2. 5. Dyslipidemia. 6. Anxiety and depression. 7. Tobacco abuse disorder. 8. Chronic kidney disease, stage 3. 9. Gout. 10. Gastroesophageal reflux disease. PLAN: Send to [facility] for close monitoring because of her mental status. Neurologic consultation. Stroke Team evaluation. Echocardiography to assess ejection fraction and other structural abnormality. Aspirin 300 mg rectally versus aspirin 325 mg p.o. daily. PT, OT, and Speech will be consulted. The patient will need rehab placement. We will continue Lipitor 40 mg p.o. at bedtime, Lovenox 40 mg subcu daily, Pepcid 20 mg IV b.i.d. for GI prophylaxis. We will check urine drug screen. We will repeat labs tomorrow including lipid profile and homocystine. CODE STATUS: The patient is full code. DISPOSITION PLAN: Based on clinical course, we are expecting the patient's stay in hospital more than 2 midnights. Job ID: [id number]
[2018-09-06 15:46] LABS: Prothrombin Time 13.5 SEC (12.0-14.7)
[2018-09-06 15:47] LABS: PTT 30.7 SEC (22.9-36.1)
[2018-09-06 16:01] LABS: Acetaminophen Less than 6.0 mcg/mL (10.0-30.0); Alcohol Less than 10 mg/dL (Less than 10); Salicylate Less than 8.0 mg/dL (15.0-30.0)
[2018-09-06 17:10] VITALS: BMI 30.5
[2018-09-06] MEDS: Famotidine/PF 20 mg/2ml Vial SLOW IVP SCH (20:48)
[2018-09-06] MEDS: Famotidine 20 MG TAB PO SCH (20:50)
[2018-09-06] MEDS: Atorvastatin Calcium 40 MG TAB PO SCH (20:50)
[2018-09-06 22:41] LABS: Actual Bicarbonate (HCO3a) 25.3 mEq/L (22-28); Base Excess (BEa) 0.1 mEq/L (-2.0 to +3.0); CO2 Tension 43.3 mmHg (35.0-45.0); Calcium, Ionized 1.24 mmol/L (1.12-1.30); Carboxyhemoglobin (COHb) 3.4 gm% (0.0-3.0); Hemoglobin (Hb) 11.4 g/dL (12.0-16.0); Potassium - ABG Lab 3.92 mmol/L (3.70-5.30); pH, Arterial 7.39 (7.35-7.45)
[2018-09-06 22:54] LABS: Actual Bicarbonate (HCO3a) 24.3 mEq/L (22-28); Base Excess (BEa) -0.7 mEq/L (-2.0 to +3.0); CO2 Tension 41.8 mmHg (35.0-45.0); Calcium, Ionized 1.24 mmol/L (1.12-1.30); Carboxyhemoglobin (COHb) 3.3 gm% (0.0-3.0); Hemoglobin (Hb) 11.1 g/dL (12.0-16.0); O2 Tension (PaO2) 60.6 mmHg (> 80.0); Potassium - ABG Lab 3.87 mmol/L (3.70-5.30); pH, Arterial 7.38 (7.35-7.45)
[2018-09-06 22:56] LABS: O2 Tension (PaO2) 43.6 mmHg (> 80.0)
[2018-09-06 22:57] LABS: ALV-art Gradient 52.005 (0-20); Puncture Site LBR
[2018-09-06 22:57] LABS: Puncture Site LRA
[2018-09-06 23:15] LABS: Amphetamine Not Detected (NotDetected); Barbiturates Screen Not Detected (NotDetected); Benzodiazepine Screen Detected (NotDetected); Cocaine Metabolite Screen Not Detected (NotDetected); Medtox Control Line Valid? VALID (VALID); Medtox Reader # READER 1; Methadone Not Detected (NotDetected); Methamphetamine Not Detected (NotDetected); Opiate Screen Not Detected (NotDetected); Oxycodone Screen Not Detected (NotDetected); Phencyclidine (PCP) Not Detected (NotDetected); THC/Cannabinoid Screen Not Detected (NotDetected); Tricyclic Screen Detected (NotDetected)
[2018-09-07 05:29] LABS: #Basophils 0.1 thou/uL (0.0-0.2); #Eosinphils 0.3 thou/uL (0.0-0.7); #Lymphocytes 3.1 thou/uL (1.20-3.40); #Monocytes 0.8 thou/uL (0.11-0.59); #Neutrophils 4.4 thou/uL (1.40-6.50); %Basophils 1.1 % (0.0-1.0); %Eosinophils 3.3 % (0.0-10.0); %Lymphocytes 36.2 % (21.0-51.0); %Monocytes 8.9 % (0.0-10.0); %Neutrophils 50.5 % (42.0-75.0); Hemoglobin 12.1 g/dL (12.0-16.0); Mean Corpuscular HGB CONC 31.5 g/dL (32.0-36.0); Mean Corpuscular Hemoglobin 28.9 pg (27.0-31.0); Mean Corpuscular Volume 91.8 fL (78.0-98.0); Mean Platelet Volume 7.6 fL (7.4-10.4); Platelet Count 305 thou/uL (130-400); RBC Distribution Width 12.4 % (11.5-14.5); White Blood Cell (WBC) Count 8.7 thou/uL (4.8-10.8)
[2018-09-07 05:51] LABS: Anion Gap 18 mmol/L (10-20); BUN (Urea Nitrogen) 15 mg/dL (9.8-20.1); Calc. Creatinine Clearance 71 mL/min (70-130); Carbon Dioxide 23 mmol/L (23-31); Cardiac Risk 2.9 (Less than 4.5); Chloride 105 mmol/L (98-107); Cholesterol 161 mg/dl (< 200 Desired); Estimated GFR-MDRD 46; Glucose 81 mg/dL (80-115); HDL Cholesterol 56 mg/dL (>60 Neg Risk); LDL Cholesterol, Calculated 79 mg/dL; Potassium 4.6 mmol/L (3.5-5.1); Sodium 141 mmol/L (136-145); Triglycerides 130 mg/dL (Less than 150)
[2018-09-07] MEDS ORDERED: Aspirin 300 MG Suppository PR SCH (09:00)
[2018-09-07] MEDS: Famotidine/PF 20 mg/2ml Vial SLOW IVP SCH (09:15)
[2018-09-07] MEDS: Enoxaparin Sodium 40 MG/0.4 ML SYRINGE SC SCH (09:15)
[2018-09-07] MEDS: Aspirin 325 MG TAB PO SCH (09:15)
[2018-09-07] MEDS: Famotidine 20 MG TAB PO SCH ×2 (09:16→20:47)
--- NOTE | 2018-09-07 09:42 | MRI ---
MRI BRAIN NONCONTRAST: DATE: 09/07/18 HISTORY: 63-year-old female with TIA. Dysarthria. Right upper extremity and right lower extremity weakness. COMPARISON: No prior MRIs of brain. FINDINGS: Images are degraded by patient motion. Moderate degree of chronic ischemic white matter changes in th e periventricular and deep cerebral white matter symmetrically. Patchy region of asymmetric moderate sized signal abnormality involving left caudate nucleus and adjacent left periventricular white matte r representing old infarction. Several tiny old lacunar infarctions in the bilateral thalami. No evid ence of recent intra-axial hemorrhage. No restricted diffusion to indicate acute infarction. Small ol d lacunar infarctions in the right side of [place]. Ventricles are normal in size and configuration. No mass effect, midline shift, or extra-axial fluid collection. IMPRESSION: 1. Old infarction of left corpus striatum. 2. Small old lacunar infarctions of bilateral thalami and right [place]. 3. Moderate chronic ischemic white matter changes. 4. No acute intracranial findings. JUAN Cabral POS: [facility]
[2018-09-07] MEDS: hydrALAZINE 20 MG/ML VIAL SLOW IVP PRN ×3 (09:58→20:47)
[2018-09-07] MEDS: Acetaminophen 325 MG TAB PO PRN ×2 (09:58→12:59)
[2018-09-07] MEDS: HumaLOG 300 UNITS/3 ML VIAL SC PRN ×2 (10:48→18:15)
--- NOTE | 2018-09-07 11:11 | PDOC.PN ---
- Subjective Encounter Start Date: 09/07/18 Encounter Start Time: 08:50 -: old records requested/rev pt is more alert, does not have any focal deficit - Objective Resuscitation Status - Order Detail: 09/06/18 14:40 Resuscitation Status Routine Resuscitation Status: FULL: Full Resuscitation MAR Reviewed: Yes Vital Signs & Weight: Vital Signs (12 hours) Temp BP Pulse Ox 09/07/18 10:00 98.0 F 09/07/18 09:17 201/112 H 09/07/18 07:44 100 09/07/18 04:00 97.5 F L Weight Weight 200 lb 13.76 oz Most Recent Monitor Data Heart Rate from ECG 94 NIBP 181/149 NIBP BP-Mean 159 Respiration from ECG 21 SpO2 99 I&O: 09/06/18 09/07/18 09/08/18 06:59 06:59 06:59 Output Total 1100 Balance -1100 Result Diagrams: 09/07/18 04:49 09/07/18 04:49 Additional Labs: Accuchecks 09/07/18 09/07/18 09/06/18 10:40 05:48 23:43 POC Glucose 277 H 92 90 09/06/18 09/06/18 09/06/18 19:51 18:25 13:00 POC Glucose 84 76 97 Radiology Reviewed by me: Yes (MRI no acute) EKG Reviewed by me: Yes (nsr) Phys Exam - Physical Examination Constitutional: NAD HEENT: PERRLA, moist MMs, sclera anicteric Neck: no JVD, supple Respiratory: no wheezing, no rales, no rhonchi Cardiovascular: RRR, no significant murmur, no rub Gastrointestinal: soft, non-tender, no distention, positive bowel sounds Musculoskeletal: no edema, pulses present Neurological: non-focal, normal sensation, moves all 4 limbs Lymphatic: no nodes Psychiatric: normal affect, A&O x 3 Skin: no rash, normal turgor Dx/Plan (1) Encephalopathy acute Code(s): G93.40 - ENCEPHALOPATHY, UNSPECIFIED Status: Acute (2) H/O: CVA (cerebrovascular accident) Code(s): Z86.73 - PRSNL HX OF TIA (TIA), AND CEREB INFRC W/O RESID DEFICITS Status: Resolved (3) Anxiety and depression Code(s): F41.9 - ANXIETY DISORDER, UNSPECIFIED; F32.9 - MAJOR DEPRESSIVE DISORDER, SINGLE EPISODE, UNSPECIFIED Status: Chronic (4) Diabetes type 2, controlled Code(s): E11.9 - TYPE 2 DIABETES MELLITUS WITHOUT COMPLICATIONS Status: Chronic (5) GERD (gastroesophageal reflux disease) Code(s): K21.9 - GASTRO-ESOPHAGEAL REFLUX DISEASE WITHOUT ESOPHAGITIS Status: Chronic (6) Gout Code(s): M10.9 - GOUT, UNSPECIFIED Status: Chronic (7) Hypertension Code(s): I10 - ESSENTIAL (PRIMARY) HYPERTENSION Status: Chronic (8) Obesity (BMI 30.0-34.9) Code(s): E66.9 - OBESITY, UNSPECIFIED Status: Chronic (9) TIA (transient ischemic attack) Code(s): G45.9 - TRANSIENT CEREBRAL ISCHEMIC ATTACK, UNSPECIFIED Status: Acute - Plan cont current plan of care * medication reviewed as below * symptomatic treatment * transfer to stroke * home medication reconciled * echo pending. * will adjust bP meds * tomorrow plan for discharge Review of Systems - Review of Systems ENT: negative: Ear Pain, Ear Discharge, Nose Pain, Nose Discharge, Nose Congestion, Mouth Pain, Mouth Swelling, Throat Pain, Throat Swelling, Other Respiratory: negative: Cough, Dry, Shortness of Breath, Hemoptysis, SOB with Excertion, Pleuritic Pain, Sputum, Wheezing Cardiovascular: negative: chest pain, palpitations, orthopnea, paroxysmal nocturnal dyspnea, edema, light headedness, other Gastrointestinal: negative: Nausea, Vomiting, Abdominal Pain, Diarrhea, Constipation, Melena, Hematochezia, Other Genitourinary: negative: Dysuria, Frequency, Incontinence, Hematuria, Retention , Other Musculoskeletal: negative: Neck Pain, Shoulder Pain, Arm Pain, Back Pain, Hand Pain, Leg Pain, Foot Pain, Other Skin: negative: Rash, Lesions, Ryan, Bruising, Other - Medications/Allergies Allergies/Adverse Reactions: Allergies Allergy/AdvReac Type Severity Reaction Status Date / Time No Known Allergies Allergy Verified 07/14/18 02:06 Medications: Current Medications Acetaminophen (Tylenol) 650 mg PO Q4H PRN PRN Reason: Headache/Fever/Mild Pain (1-3) Last Admin: 09/07/18 09:58 Dose: 650 mg Allopurinol (Zyloprim) 200 mg PO DAILY YASHIRA Artificial Tears (Tears Naturale) 2 drop EA EYE PRN PRN PRN Reason: Dry Eyes Aspirin (Aspirin) 325 mg PO DAILY REPLACED BY [facility] Last Admin: 09/07/18 09:15 Dose: 325 mg Aspirin (Aspirin) 300 mg DC DAILY REPLACED BY [facility] Last Admin: 09/07/18 09:16 Dose: Not Given Atorvastatin Calcium (Lipitor) 40 mg PO HS REPLACED BY [facility] Last Admin: 09/06/18 20:50 Dose: Not Given Bisacodyl (Dulcolax) 10 mg DC DAILYPRN PRN PRN Reason: Constipation Bisacodyl (Dulcolax) 10 mg PO DAILYPRN PRN PRN Reason: Constipation Calcium Carbonate (Tums) 1,000 mg PO Q4H PRN PRN Reason: Heartburn or Indigestion Carvedilol (Coreg) 12.5 mg PO BID-[facility] Carvedilol (Coreg) 12.5 mg PO NOW REPLACED BY [facility] Dextrose/Water (Dextrose 50%) 25 gm SLOW IVP PRN PRN PRN Reason: Hypoglycemia Enoxaparin Sodium (Lovenox) 40 mg SC 0900 REPLACED BY [facility] Last Admin: 09/07/18 09:15 Dose: 40 mg Famotidine (Pepcid) 20 mg PO BID REPLACED BY [facility] Last Admin: 09/07/18 09:16 Dose: Not Given Famotidine (Pepcid) 20 mg SLOW IVP BID REPLACED BY [facility] Last Admin: 09/07/18 09:15 Dose: 20 mg Furosemide (Lasix) 40 mg PO DAILY REPLACED BY [facility] Glucagon (Glucagon) 1 mg IM PRN PRN PRN Reason: Hypoglycemia Glyburide (Diabeta) 5 mg PO DAILY REPLACED BY [facility] Guaifenesin (Robitussin Sf) 200 mg PO Q4H PRN PRN Reason: Cough Hydralazine HCl (Apresoline) 10 mg SLOW IVP Q4H PRN PRN Reason: SBP > 180 and HR < 70 Last Admin: 09/07/18 09:58 Dose: 10 mg Dextrose/Water (D5w) 1,000 mls @ 0 mls/hr IV .Q0M PRN PRN Reason: Hypoglycemia Insulin Human Lispro (Humalog) 0 units SC .MODERATE SLIDING SC PRN PRN Reason: Moderate Correctional Scale Last Admin: 09/07/18 10:48 Dose: 6 unit Insulin Human Lispro (Humalog) 0 units SC .BEDTIME SLIDING SC PRN PRN Reason: Bedtime Correctional Scale Loperamide HCl (Imodium) 2 mg PO PRN PRN PRN Reason: Diarrhea/Loose Stools Loratadine (Claritin) 10 mg PO DAILYPRN PRN PRN Reason: Sinus Symptoms Losartan Potassium (Cozaar) 25 mg PO DAILY YASHIRA Losartan Potassium (Cozaar) 25 mg PO NOW REPLACED BY [facility] Mineral Oil/White Petrolatum (Eucerin Cream) 0 gm TOP BIDPRN PRN PRN Reason: Dry Skin Non-Formulary Medication (Carvedilol [Coreg]) 12.5 mg PO BID REPLACED BY [facility] Ondansetron HCl (Zofran Odt) 4 mg PO Q6H PRN PRN Reason: Nausea/Vomiting Ondansetron HCl (Zofran) 4 mg IVP Q6H PRN PRN Reason: Nausea/Vomiting Pantoprazole Sodium (Protonix) 40 mg PO DAILY REPLACED BY [facility] Quetiapine Fumarate (Seroquel) 200 mg PO BID REPLACED BY [facility] Senna/Docusate Sodium (Senokot S) 2 tab PO BID PRN PRN Reason: Constipation Sodium Chloride ([place] Nas[place] 0.65%) 0 ml EA NARE QIDPRN PRN PRN Reason: Nasal Congestion Throat Lozenges (Cepastat Lozenges) 1 jesus alberto PO Q2H PRN PRN Reason: Sore Throat Tramadol HCl (Ultram) 50 mg PO Q8HR PRN PRN Reason: Pain
[2018-09-07] MEDS ORDERED: Losartan 25 MG TAB PO SCH (11:15)
[2018-09-07] MEDS ORDERED: Carvedilol 6.25 MG TAB PO SCH (11:15)
[2018-09-07] MEDS: traMADol HCl 50 MG TAB PO PRN (11:23)
--- NOTE | 2018-09-07 13:27 | CON ---
DATE OF CONSULTATION: 09/07/2018 SERVICE: Pulmonary Medicine. REASON FOR CONSULT: [facility] patient. HISTORY OF PRESENT ILLNESS: The patient is a 63-year-old female with past medical history significant for chronic pain. She takes pain medications at home, but has a hard time tell me exactly which she is on. Sometimes she will take Payne, tramadol. She has multiple allergies to different [id number]-jijebbv medications for pain. Ultimately, she presented to the emergency department because of altered mentation. It was noted that she had a very small pupils that were poorly responsive. In the emergency room, she underwent a negative diagnostic evaluation for acute [employer] injuries. She was tucked in the [facility] and watched very closely. Overnight, she had a significant improvement in neurologic function. Her encephalopathy cleared and the first thing she said was she is in pain and needed pain medication. Before I walked in the room, I waited outside the door and listened very carefully. She did not appear to be in any distress. I knocked on the door and she started hyperventilating. I talked to the patient, but the only thing she wanted tell me about was her chronic back discomfort, for which she took medication at home. She specifically denied having any shortness of breath or chest discomfort. Otherwise, there were no significant overnight events. PAST MEDICAL HISTORY: 1. COPD. 2. Hypertension. 3. Type 2 diabetes mellitus. 4. Dyslipidemia. 5. History of CVA. 6. Tobacco abuse. PAST SURGICAL HISTORY: 1. Cholecystectomy. 2. section. SOCIAL HISTORY: Negative for alcohol or illicit drug use. She has a greater than 30 pack-year history of smoking and continues to smoke occasionally. She has no exposure to chemicals, dust, asbestos, or tuberculosis. FAMILY HISTORY: Noncontributory. ALLERGIES: NO KNOWN DRUG ALLERGIES. MEDICATIONS: List of her inpatient medications was reviewed. No specific updates were made at this time. REVIEW OF SYSTEMS: General, head, ears, eyes, nose, throat, cardiovascular, respiratory, GI, , musculoskeletal, neurologic, and skin is negative except as mentioned in the HPI. PHYSICAL EXAMINATION: VITAL SIGNS: Afebrile, pulse 94, blood pressure 181/149, respirations 21, saturation 99% on room air. GENERAL: The patient is awake and alert, in no apparent distress. LUNGS: Excellent air entry. There is no prolonged expiratory phase. Extensive rhonchi are present. I had her cough very hard and all those rhonchi went away. She did not have any wheezing or crackles. HEART: Normal rate, regular. ABDOMEN: Soft, nontender, and nondistended. Bowel sounds are positive. MUSCULOSKELETAL: No cyanosis or clubbing. No pitting in the bilateral lower extremities. NEUROLOGIC: Grossly nonfocal. LABORATORY DATA: WBC 8.7, hemoglobin 12.1, platelets 305,000. INR 1.0. PH 7.38, pCO2 41, PO2 61 on room air. Basic metabolic profile is essentially unremarkable except for creatinine of 1.2, which is the lowest value we have recorded on her. Liver function studies are unremarkable. Troponin is negative x1. Urine drug screen is positive for tricyclic antidepressants and benzodiazepines. Plasma alcohol, acetaminophen, and salicylate levels were all negative. IMAGIN. MRI of the brain demonstrates no acute intracranial abnormality. There is an old infarct of the left corpus striatum. There are also old lacunar infarcts in the bilateral thalami and right desiree. No acute other findings are noted. 2. Chest x-ray demonstrates small lung volumes which accentuate vascular markings. Possible small effusion. 3. CT of the brain demonstrates no acute intracranial abnormality. 4. CTA of the [place] was unremarkable for acute destructive lesion. ASSESSMENT: 1. Metabolic encephalopathy, suspected. 2. Chronic obstructive pulmonary disease, possible without current exacerbation. 3. Overuse of prescription medication. 4. History of stroke. DISCUSSION AND PLAN: From my perspective, the patient is stable for transition out of the IMCU to the stroke unit. We can watch her for an additional 24 hours. When she leaves the IM, she will have no further requirements for inpatient Pulmonary or Critical Care opinion, and I will sign off. Please call with additional questions or concerns. Job ID: [id number]
[2018-09-07] MEDS ORDERED: Fentanyl 100 MCG/2 ML VIAL ONE (13:53)
[2018-09-07] MEDS ORDERED: Midazolam HCl 2 mg/2 ml Vial ONE (13:53)
[2018-09-07] MEDS ORDERED: Lorazepam 2 MG/ML VIAL SLOW IVP PRN (17:41)
[2018-09-07] MEDS: Carvedilol 6.25 MG TAB PO SCH (17:57)
[2018-09-07] MEDS: Atorvastatin Calcium 40 MG TAB PO SCH (20:47)
[2018-09-07] MEDS ORDERED: Non-Formulary Item 1 EACH (Carvedilol [Coreg] 12.5 MG) PO SCH (21:00)
[2018-09-08] MEDS: hydrALAZINE 20 MG/ML VIAL SLOW IVP PRN (04:01)
[2018-09-08] MEDS: traMADol HCl 50 MG TAB PO PRN ×2 (05:00→13:23)
[2018-09-08] MEDS: Acetaminophen 325 MG TAB PO PRN (05:44)
[2018-09-08] MEDS: HumaLOG 300 UNITS/3 ML VIAL SC PRN ×2 (05:44→12:09)
[2018-09-08] MEDS: Aspirin 325 MG TAB PO SCH (08:49)
[2018-09-08] MEDS: Famotidine 20 MG TAB PO SCH (08:50)
[2018-09-08] MEDS: Enoxaparin Sodium 40 MG/0.4 ML SYRINGE SC SCH (08:51)
[2018-09-08] MEDS: Carvedilol 6.25 MG TAB PO SCH (08:51)
[2018-09-08] MEDS ORDERED: Losartan 25 MG TAB PO SCH (09:00)
[2018-09-08] MEDS ORDERED: glyBURIDE 5 MG TAB PO SCH (09:00)
[2018-09-08] MEDS ORDERED: Allopurinol 100 MG TAB PO SCH (09:00)
[2018-09-08] MEDS ORDERED: Furosemide 40 MG TAB PO SCH (09:00)
--- NOTE | 2018-09-08 11:27 | DIS ---
DATE OF ADMISSION: 09/06/2018 DATE OF DISCHARGE: 09/08/2018 PRIMARY CARE PHYSICIAN: Osbaldo Pickering MD DISCHARGE DISPOSITION: Home with home health. PRIMARY DISCHARGE DIAGNOSES: 1. Acute encephalopathy, suspecting from benzo use. 2. Transient ischemic attack, ruled out cerebrovascular accident. SECONDARY DISCHARGE DIAGNOSES: History of cerebrovascular accident, obesity with BMI 30, hypertension, gout, gastroesophageal reflux disease, diabetes type 2, anxiety, depression. PRIMARY PROCEDURE/OPERATION: None. RADIOLOGICAL INVESTIGATION: CT brain did not show any acute intracranial process. CT [place] did not show any significant acute vascular occlusion. Both CT brain showed chronic ischemic white matter changes and age-related atrophy as well as atherosclerotic plaque in carotid arteries. MRI brain showed age-related atrophy, ischemic changes, but no acute process. Old infarct noted. Echocardiography showed diastolic dysfunction. SIGNIFICANT LABORATORY DATA: WBC 8.7, hemoglobin 12.1, platelets 305. INR 1.0. Sodium 141, potassium 4.6, BUN 15, creatinine 1.19, calcium 10.0, LDL 79. LFT normal. Troponin negative. Urine drug screen positive for tricyclic and benzos. Serum drug screen negative. DISCHARGE MEDICATIONS: 1. Tramadol 50 mg q.8 hourly p.r.n. 2. Allopurinol 200 mg daily. 3. Aspirin 325 mg daily. 4. Lasix 40 mg p.o. daily. 5. Glyburide 5 mg daily. 6. Protonix 40 mg p.o. daily. 7. Potassium chloride 20 mEq p.o. daily. 8. Pravastatin 40 mg p.o. q.h.s. 9. Seroquel 200 mg p.o. b.i.d. 10. Coreg 12.5 mg p.o. b.i.d. 11. Losartan 25 mg p.o. b.i.d. CONTRAINDICATION: None. CODE STATUS: Full code. INPATIENT DIRECTOR CASE: Dr. Kaur saw this patient in [facility]. TEST RESULT PENDING ON DISCHARGE: None. ALLERGIES: NO KNOWN DRUG ALLERGIES. DISCHARGE PLAN: Posthospital, the patient will follow up with primary care physician in 1 week. HOSPITAL COURSE: A 63-year-old female, who was admitted by me. Please see my HPI for further details. On admission, the patient was sleepy, lethargic, and unable to provide any history. There was concern of stroke by paramedics and that is why the patient had a stroke alert in the emergency room. CT brain and CT [place] were unremarkable for acute process. The patient was not a candidate for any tPA because onset was uncertain. She was admitted to [facility] because she was lethargic. We did MRI brain that did not show any new stroke, but it showed old stroke and chronic ischemic white matter changes. Echocardiography showed diastolic dysfunction. After [facility] admission within 24 hours, the patient was completely more alert. Her urine drug screen was positive for tricyclic and benzos and we suspected that the patient may did medication error by herself and that also she confirmed next day. The patient's sister will manage her medication from now onwards. At this point, initially suspicious for stroke versus TIA, but we are not suspecting any clinically and retrospectively we are making diagnosis that this patient's altered mental status and encephalopathy were probably related with her medication error with benzodiazepine, which might have caused her clinical presentation, but that is resolved. During this admission, blood pressure was high that is why we increased the Coreg and we increased the losartan. Rest of medication will be continued as per previous. Healthy lifestyle measure discussed with the patient. I have seen and examined the patient at bedside today. Plan of care discussed with the patient in detail. REVIEW OF SYSTEMS: Review of systems reviewed with her and negative. All new medication prescription sent to pharmacy. PHYSICAL EXAMINATION: VITAL SIGNS: Currently, blood pressure 151/99, pulse 91, respiratory rate 20, saturation 100%. Her examination is completely benign and normal. Job ID: [id number] MTDD
[2018-09-08 12:52] VITALS: BP 129/99; TEMP 98.4
--- NOTE | 2018-09-08 13:14 | CON ---
DATE OF CONSULTATION: 09/08/2018 NEUROLOGIC CONSULTATION. CONSULTING PHYSICIAN: Hospitalist Services. IMPRESSION: 1. Possible transient ischemic attack. 2. Prior stroke with some right-sided weakness. 3. Hypertension. 4. Diabetes. 5. Aspirin failure. PLAN: 1. Add Plavix 75 mg per day. 2. PT assessment and determine whether inpatient rehab is needed. HISTORY OF PRESENT ILLNESS: Ms. Whitlock is a 63-year-old black female with the above noted medical problems. She reports she has had some chronic weakness on the right and causes her to drag her foot a bit. She usually gets around without a cane or a walker. She was at home by herself when she noted there was increased weakness on the right side. She called her and noted that she was slurring her speech. Her weakness lasted for an indeterminate period of time and subsequently brought into the emergency room. CT and CTA did not show any acute abnormalities. She had an MRI of the brain, which showed some chronic ischemic changes, but no acute changes. Echocardiogram shows ejection fraction of 50% to 55%. She has walked with the use of a walker according to the nurses since admission. She denies any past history of known stroke or heart disease. She was on aspirin and a statin prior to admission. PAST MEDICAL HISTORY: As listed above. ALLERGIES: NONE. SOCIAL HISTORY: No tobacco or alcohol use. FAMILY HISTORY: Noncontributory. MEDICATIONS: Medication list was reviewed. REVIEW OF SYSTEMS: Ten-system review of systems was otherwise negative. PHYSICAL EXAMINATION: GENERAL: She is a well-nourished, middle-aged woman, who appears a bit older than her stated age. VITAL SIGNS: Blood pressure 151/99, pulse 91, respirations 20, and temperature 98.1. HEENT: Pupils are equal and reactive. Conjunctivae clear. Oropharynx clear. NECK: Supple. No lymphadenopathy noted. EXTREMITIES: No cyanosis, clubbing, or edema. NEUROLOGIC: She is alert and cooperative. Her speech is fluent and clear. Cranial nerve exam showed some slight flattening of the right nasolabial fold. Motor exam showed no dysmetria, but she did have a fix on the right with arm roll testing. She seemed to have a slightly diminished hand biztalk architect as well. She had equal sensation. She could stand independently at a walker. No abnormal movements were seen. LABORATORY DATA: CTA showed some plaque in the internal carotid arteries, but no significant stenosis. SUMMARY: A 63-year-old woman with risk factors for small vessel disease, who presents with increased right-sided weakness. Would add Plavix for the next 6 months. Just need to determine what her level of mobility is as to whether she can return home at this point. Job ID: [id number]
== END 2018-09-08 15:04 | disposition home health service (06) | DRG 917 ==
LOC: ERS 12:27 → IMCU/EMU 16:12 → 2SE 09-07 12:03
PROVIDERS: ADMIT Internal Medicine; ATTEND Internal Medicine
DX: T42.4X1A Poisoning by benzodiazepines, accidental (unintentional), initial encounter (principal); G92 Toxic encephalopathy; I69.351 Hemiplegia and hemiparesis following cerebral infarction affecting right dominant side; G45.9 Transient cerebral ischemic attack, unspecified; J44.9 Chronic obstructive pulmonary disease, unspecified; E78.5 Hyperlipidemia, unspecified; E11.42 Type 2 diabetes mellitus with diabetic polyneuropathy; F41.9 Anxiety disorder, unspecified; F32.9 Major depressive disorder, single episode, unspecified; E11.22 Type 2 diabetes mellitus with diabetic chronic kidney disease; N18.3 Chronic kidney disease, stage 3 (moderate); I12.9 Hypertensive chronic kidney disease with stage 1 through stage 4 chronic kidney disease, or unspecified chronic kidney disease; K21.9 Gastro-esophageal reflux disease without esophagitis; M10.9 Gout, unspecified; E66.9 Obesity, unspecified; F17.210 Nicotine dependence, cigarettes, uncomplicated; Z90.49 Acquired absence of other specified parts of digestive tract; Z79.82 Long term (current) use of aspirin; Z79.899 Other long term (current) drug therapy; Z68.30 Body mass index [BMI] 30.0-30.9, adult
CPT/HCPCS: 36415; 36416; 51701; 70450; 70496; 70498; 70551; 71045; 80048; 80053; 80061; 80306; 80307; 82550; 82805; 83090; 84484; 85025; 85610; 85730; 93005; 93010; 93306; A4353; J0360; J1650; J2060; J2250; J3010; Q9967; S0028